=== PATIENT | male | born 1990 | race Caucasian/White ===

== ENCOUNTER 2020-11-24 09:56 | Emergency (ER) | payer OTHER, SELFPAY ==
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
[2020-11-24 10:06] VITALS: BP 172/84; PULSE 101; RESP 16; TEMP 37.1; O2SAT 98
== END 2020-11-24 10:36 | disposition home or self-care (01) ==
PROVIDERS: Emergency Provider Nurse Practitioner Family
DX: T15.92XA Foreign body on external eye, part unspecified, left eye, initial encounter (principal); X58.XXXA Exposure to other specified factors, initial encounter
CPT/HCPCS: 99202; G0463